=== PATIENT | female | born 1960 | race Caucasian/White ===

== ENCOUNTER 2017-12-18 07:55 | Day surgery (SDC) | payer MEDICAID, SELFPAY ==
[2017-12-18] VITALS (7 sets, daily range): BP systolic 111–123; BP diastolic 58–69; PULSE 68–95; RESP 15–16; TEMP 36.3–36.7; O2SAT 100; BMI 23.5
--- NOTE | 2017-12-18 | COLBX_PTH ---
PATIENT: CASSANDRA CANADA LOC: EN U#:[id number] AGE/SX: 57/F ROOM: RE12/18/[address]: Dr. Noam Goodman MD : 1960 BED: DIS: 12/18/2017 SPEC #: [id number] RECD: 12/18/17 14:31 STATUS: ABHISHEK BECCA #: [id number] MAHESH: 12/18/17 00:[address]: Noam Goodman DEPT: SURGICAL PATHOLOGY RECD BY: Isaías Robins ENTERED: 12/18/17 14:31 SP TYPE: COLON BX ELDA DR: Dr. Noam Flores DO Tissues: A - Transverse colon B - COLON BIOPSY Procedures: Surgery Specimen Level IV HEADER OPERATION: Colonoscopy PRE-OP DIAGNOSIS: Change in bowel habit TISSUE SUBMITTED: A ? Proximal transverse polyp, B ? Random colon biopsies MICROSCOPIC DIAGNOSIS A. Proximal transverse colon polyp, biopsy: Fragments of tubular adenoma. B. Random biopsy: No pathologic diagnosis. AM:sp 12/21/17 MICROSCOPIC DESCRIPTION Slides are reviewed. GROSS DESCRIPTION A - Received is one container labeled with the patient name and designated proximal transverse colon polyp. The specimen consists of multiple irregular fragments of light bui soft tissue that in aggregate measure 1.7 x 0.5 x 0.2 cm. The specimen is totally submitted in one cassette. B - Received is one container labeled with the patient name and designated random colon biopsy. The specimen consists of multiple irregular fragments of light bui soft tissue that in aggregate measure 1 x 0.6 x 0.1 cm. The specimen is totally submitted in one cassette. /AM:rikki 12/18/17 TC: 5 CPT: 88988 x2
--- NOTE | 2017-12-18 10:22 | PCM.OPRPT ---
Problem List (1) Change in bowel habit Status: Acute Report of Operation Date of Procedure: 12/18/17 Pre-Operative Diagnosis: Change of bowel habit, mucus per rectum Post-Operative Diagnosis: Extraordinarily tortuous colon, sessile polyp of the proximal transverse colon, very difficult colonoscopy Surgery/Procedure Performed:: Colonoscopy with hot snare polypectomy. Multiple random colonic biopsies with cold forceps Description of Surgical Findings:: Amount informed consent was obtained. 57-year-old female was taken to the endoscopy suite. She was placed in a left lateral decubitus position. She underwent monitored anesthesia care because a previous colonoscopy done in 2009 included excessive dosing of Versed. Digital rectal exam performed. Normal anal tone. Mild hemorrhoidal changes. Flexible pediatric colonoscope was in the rectum advanced through a very tortuous sigmoid colon. The bowel did not want to easily insufflate. Great tedious time was required to get scope to go through the sigmoid and descending. The patient had a very high hairpin turn to the splenic flexure. This was carefully transgressed patient then had to be placed supine to get the scope to go through the transverse colon then she had a port be placed in the left lateral decubitus position transabdominal pressure was held eventually I was able to get the scope past the hepatic flexure was also made any acute angulation and then there was an elongated ascending colon down to the cecum. The cecum ileocecal valve was achieved. Bowel prep was adequate. There was still some mucousy stool throughout the colon but that could be mostly aspirated. The cecum ileocecal valve area was not remarkable. The scope was carefully withdrawn the ascending colon appeared unremarkable. There was a sessile 12 mm polyp of the proximal transverse colon. Photograph obtained. Hot snare was used to resect. I did use coagulation prior to the coagulation cut setting. The post polypectomy site appeared to be completely hemostatic. It is of additional note that random colonic biopsies were taken throughout the procedure. The scope was then further withdrawn through the transverse colon descending colon and very tortuous sigmoid colon. No additional lesions were identified. Random colonic biopsies with cold forceps were taken along the way. The scope was retroflexed within the rectum mild hemorrhoidal changes noted excess fluid and air was aspirated free the procedure was completed with the patient tolerating it well. Impression Very elongated colon with sharp angled tortuosities Sessile polyp of the proximal transverse colon Random colonic cold forcep biopsies pending The patient will be notified of results as they become available. No gross findings that would correlate with the patient's complaint of mucus per rectum identified. Previous colonoscopy in 2013. Next colonoscopy recommended in 5 years pending pathology. Scope was inserted 0943. The cecum was reached at 1006. The procedure was completed at 1018. CC: Dr. Noam Goodman M.D., F.A.C.S. Type of Anesthesia:: MAC Anesthesiologist: Mallika Nassar
== END 2017-12-18 11:53 | disposition home or self-care (01) ==
LOC: EN 07:56 → AC 07:57
PROVIDERS: Family Provider Preventive Medicine Occupational Medicine; PCP Preventive Medicine Occupational Medicine; Visit Provider Surgery
PROC: 0DJD8ZZ Inspection of Lower Intestinal Tract, Via Natural or Artificial Opening Endoscopic (ICD-10-PCS; CPT 45378; principal; 2017-12-18 08:55)
DX: D12.3 Benign neoplasm of transverse colon (principal); D68.59 Other primary thrombophilia; F32.9 Major depressive disorder, single episode, unspecified; F41.9 Anxiety disorder, unspecified; M54.9 Dorsalgia, unspecified; G89.29 Other chronic pain; Z86.718 Personal history of other venous thrombosis and embolism; Z86.73 Personal history of transient ischemic attack (TIA), and cerebral infarction without residual deficits; Z87.891 Personal history of nicotine dependence; Z86.2 Personal history of diseases of the blood and blood-forming organs and certain disorders involving the immune mechanism; Z79.82 Long term (current) use of aspirin; Z79.01 Long term (current) use of anticoagulants; Z79.891 Long term (current) use of opiate analgesic; Z79.899 Other long term (current) drug therapy
CPT/HCPCS: 45384; 88305; J7120; J2405

== ENCOUNTER 2022-11-04 09:05 | Day surgery (SDC) | payer MEDICAID, SELFPAY ==
[2022-11-04] VITALS (7 sets, daily range): BP systolic 122–158; BP diastolic 64–99; PULSE 90–103; RESP 16–18; TEMP 36.2–36.6; O2SAT 99–100; BMI 24.5
[2022-11-04] MEDS: Lactated Ringers 1,000 ML 15 ML IV (09:42)
--- NOTE | 2022-11-04 09:49 | PCM.HP.BLA ---
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 Is patient in pain?: Yes Allergies propofol Allergy (Verified 10/14/22 15:21) Hivesacetaminophen [From Darvocet-N] Adverse Reaction (Verified 10/14/22 15:21) PT UNSURE OF REACTIONalprazolam [From Xanax] Adverse Reaction (Verified 10/14/22 15:21) Otherdiazepam [From Valium] Adverse Reaction (Verified 10/14/22 15:21) hyperactivelorazepam [From Ativan] Adverse Reaction (Verified 10/14/22 15:21) Otherpropoxyphene [From Darvocet-N] Adverse Reaction (Verified 10/14/22 15:21) PT UNSURE OF REACTIONpropoxyphene HCl [From Darvon] Adverse Reaction (Verified 10/14/22 15:21) Other Medications Loeofq-Yuwyydyg-Nbpz 50-325-40 1 tab PO PRN PRN Headache 11/07/13 [History Confirmed 12/18/17] aspirin 81 mg chewable tablet 81 mg PO DAILY@0800 11/07/13 [History Confirmed 10/14/22] clonazepam 1 mg tablet 1 mg PO TID 11/07/13 [History Confirmed 10/14/22] jftyhfflb-fjyqtxzwp-uqyqjhxz-scop 16.2 mg-0.1037 mg/5 mL (5 mL) elixir 16.2 mg PO X1 11/07/13 [History Confirmed 12/18/17] tramadol 50 mg tablet 50 mg PO BID PRN PRN Pain 11/07/13 [History Confirmed 10/14/22] chlorzoxazone 500 mg tablet 500 mg PO TID muscle relaxant 11/24/17 [History Confirmed 10/14/22] Coral Calcium 1 cap PO TID 12/10/17 [History Confirmed 12/18/17] calcium carbonate 200 mg calcium (500 mg) chewable tablet 500 mg PO DAILY@0800 12/10/17 [History Confirmed 12/18/17] melatonin-pyridoxine HCl (vitamin B6) 3 mg-10 mg tablet 3 ea PO QHS 12/10/17 [History Confirmed 12/18/17] sucralfate 1 gram tablet 1 g PO PRN PRN stomach pain 12/10/17 [History Confirmed 10/14/22] trazodone 100 mg tablet 100 mg PO QHS PRN PRN Sleep 12/10/17 [History Confirmed 10/14/22] warfarin 7.5 mg tablet 7.5 mg PO DAILY 12/10/17 [History Confirmed 10/14/22] pravastatin 40 mg tablet tablet PO 10/14/22 [History Confirmed 10/14/22] PFSH Medical History (Updated 10/14/22 @ 15:[address] Noam Goodman MD) Cardiac murmur Change in bowel habit Chronic back pain Constipation CVA (cerebral vascular accident) Depression DVT (deep venous thrombosis) Protein C deficiency Surgical History (Updated 12/18/17 @ 10:[address] Noam Goodman MD) History of cone biopsy of uterine cervix S/P cholecystectomy S/P colonoscopy S/P parathyroidectomy Family History (Updated 11/24/17 @ 15:17 by Mary Mondragon) Sister Heart disease CAD (coronary artery disease) HypertensionMother DiabetesBrother Hypertension Social History (Updated 11/24/17 @ 19:[address] Noam Goodman MD) Smoking Status: Former smoker alcohol intake: current substance use type: does not use HPI HPI HPI: 62-year-old female is being referred by Dr. Noam Flores for surgical consultation back pain and change of bowel habits. Written compromise surgical consult and recommendations will return to him. It is of note that December 18, 2017 I performed a colonoscopy with hot snare polypectomy and multiple colonic biopsies. Postoperative note was commented upon about an extraordinarily tortuous colon and an extraordinarily difficult colonoscopy. Pathology of the polyp showed fragments of tubular adenoma. The random colonic biopsies were normal. Today's evaluation the patient states that she has been having severe problems with right lower quadrant pain. She thinks is gas. She states when she had a previous cholecystectomy that she is almost assuredly took her appendix out. She reminds me that 5 years ago I did a CT scan because of abdominal pain and saw nothing only copious amounts of colon filled stool. She has been on warfarin for at least 25 years. She states that she has had a stroke while on warfarin because her levels vary dramatically. She states that 5 years ago we only held her warfarin 1 day because of her increased risk. She denies bright red blood per rectum or melena. She states she moves her bowels sometimes as infrequently as once per week. No family history of colon cancer. She has had no unexpected weight loss She states that during her procedure 5 years ago she was given lidocaine to help with discomfort then propofol and Zofran she stated that she developed severe hives and had to additionally be treated with Benadryl. Since that time the patient has had Zofran for other reasons. She states that she has had lidocaine for dental work. Therefore she assumes that the propofol was the etiologic agent to her hives and is requesting a different type of medication. ROS General General: Yes fatigue; No weight change, appetite, colon cancer, breast cancer or weakness HEENT HEENT: No difficulty swallowing, eye injury, eye surgery, swollen glands or hoarseness Endo Endocrine: No thyroid disease, diabetes mellitus, thyroid cancer, Hair loss, heat intolerance or cold intolerance Skin Skin: Yes rash; No changing moles Breast Breast: No left breast lump, right breast lump, nipple discharge, breast pain, abnormal mammogram, abnormal US or breast enlargement Musc Musculoskeletal: Yes back problems and arthritis; No rheumatoid arthritis, gout or joint pain Cardio Cardiovascular: Yes murmur; No pacemaker, heart disease, atrial fibrillation, high blood pressure, heart attack, heart stent, palpitations, shortness of breat with exertion or chest pain Psych Psychiatric: Yes anxiety; No depression or hearing voices Resp Respiratory: No shortness of breath, No sleep apnea, No cough, No COPD, No asthma, No emphysema and No wheezing Gastro Gastrointestinal: Yes abdominal pain, Yes nausea or vomiting, No diarrhea, Yes constipation, No blood in stool, Yes acid reflux, No hemorrhoids, No ulcers, No gallbladder problem and No black,tarry stools Neo Hematologic: Yes blood thinners, Yes blood disorders, No bleeding, No anemia and Yes blood clots Neuro Neurologic: No system reviewed and no additional complaints, except as documented, No as per HPI, No abnormal gait, No abnormal hearing, No abnormal movements, No abnormal speech, No behavioral changes, No burning sensations, No confusion, No convulsions, No disequilibrium, No dizziness, No localized weakness, No frequent falls, No headache(s), No lack of coordination, No loss of vision, No memory loss, Yes numbness, No other visual disturbances, No radicular pain, No restless legs, No sensory deficit, No syncope, Yes tingling, No tremor(s), No weakness and No other Exam Const General: cooperative and comfortable HENDE Head: normal to inspection Eyes General: appearance normal, both eyes and all related structures Neck Neck: normal visual inspection Resp Effort & Inspection: normal respiratory effort Auscultation: clear to auscultation bilaterally Cardio Rate: regular rate Rhythm: regular rhythm GI Other: Soft, bloated, no focal tenderness, no mass Musc Cervical Spine: normal cervical lordosis Skin General: no rashes or lesions noted Neuro General: patient alert, patient awake and patient oriented x3 Extrem General: no calf tenderness Psych Appearance: grossly normal Assessment and Plan Assessment and Plan (1) Change in bowel habit: Status: Acute (2) Constipation: Status: Acute (3) Personal history of colonic polyps: Status: Acute (4) Protein C deficiency: Status: Acute Plan: Complicated high risk patient. I have already made comment that her previous colonoscopy was technically very challenging. She has severe constipation and right lower quadrant pain. She states that she is not moving her bowels but once every week and that routine MiraLAX treatment was complete and effective and so she has abandoned it. I had initially proposed for her 2 days of clear liquids and 2 days of bowel prep. She felt that this would be excessive and so we decided on 2 days of clear liquids have to have bowel prep on day 1 and a full day of bowel prep on day 2. She is concerned about the hives that she incurred last time. We will notify anesthesia that the patient may be intolerant to propofol. Protein C deficiency placing her at higher risk for thrombosis and/or bleeding because of the Coumadin. She states that she cannot be off the Coumadin longer than 1 day because of the variability of her anticoagulation. She states that we held it 1 day prior to her procedure 5 years ago. I anticipate monitored anesthesia care. Anticipate utilizing an adult scope. The patient is very much aware of the technique, benefit, risk, alternatives. She is aware that I consider her to be an increased procedural risk candidate. We will allow extra time. She has had an opportunity to ask and have questions answered. We will schedule procedure at her discretion. I did briefly discuss benefit risk from CT imaging of the abdomen pelvis because of the right lower quadrant pain. She states that her previous CAT scan was not usable due to the amount of stool. Depending on the findings at the time of colonoscopy might consider a postprocedural CT scan if it seems clinically indicated at that time. I appreciate the opportunity of assisting with her surgical care Plan Copy: Dr. Noam Goodman M.D., F.A.C.S. I have examined the patient and the H&P has been reviewed. There are no clinical changes since date of exam. Noam Goodman M.D., F.A.C.S.
[2022-11-04 10:00] LABS: INR Fingerstick 2.8; Prothrombin Time Fingerstick 30.3 SEC (11.7-14.9)
--- NOTE | 2022-11-04 11:36 | OP.COLON_ITS ---
Patient Name: Kailyn Rajput Procedure Date: 11/04/2022 10:59 AM Date of : 1960 Age: 62 Procedure: Colonoscopy Indications: Constipation Providers: Noam Goodman MD Referring MD: Noam Flores Medicines: See the Anesthesia note for documentation of the administered medications Patient Profile: Last Colonoscopy: date unknown. Complications: No immediate complications. Procedure: Pre-Anesthesia Assessment: - Prior to the procedure, a History and Physical was performed, and patient medications and allergies were reviewed. The patient's tolerance of previous anesthesia was also reviewed. The risks and benefits of the procedure and the sedation options and risks were discussed with the patient. All questions were answered, and informed consent was obtained. Prior Anticoagulants: The patient has taken no previous anticoagulant or antiplatelet agents. ASA Grade Assessment: II - A patient with mild systemic disease. After reviewing the risks and benefits, the patient was deemed in satisfactory condition to undergo the procedure. After I obtained informed consent, the scope was passed under direct vision. Throughout the procedure, the patient's blood pressure, pulse, and oxygen saturations were monitored continuously. The adult colonoscope was introduced through the anus and advanced to the cecum, identified by appendiceal orifice and ileocecal valve. The colonoscopy was somewhat difficult due to significant looping. Successful completion of the procedure was aided by using manual pressure. Scope In: 11:13:32 AM Scope Withdrawal Time 0 hours 5 minutes 57 seconds Scope Out: 11:30:19 AM Total Procedure Duration Time 0 hours 16 minutes 47 seconds Findings: Hemorrhoids were found on perianal exam. The colon (entire examined portion) was significantly tortuous. Advancing the scope required using manual pressure. Multiple diverticula were found in the sigmoid colon and descending colon. The lumen of the transverse colon and ascending colon was moderately dilated. Impression: - Hemorrhoids found on perianal exam. - Tortuous colon. - Diverticulosis in the sigmoid colon and in the descending colon. - Dilated in the transverse colon and in the ascending colon. - No specimens collected. Recommendation: - Discharge patient to home. - Resume previous diet. - Continue present medications. - Use fiber, for example Citrucel, Fibercon, Konsyl or Metamucil. May add MiraLAX 1 capful orally daily or even twice daily as needed for constipation - Repeat colonoscopy in 10 years for screening purposes. Procedure Code(s): --- Professional --- 17103, Colonoscopy, flexible; diagnostic, including collection of specimen(s) by brushing or washing, when performed (separate procedure) Diagnosis Code(s): --- Professional --- K64.9, Unspecified hemorrhoids K59.39, Other megacolon K59.00, Constipation, unspecified K57.30, Diverticulosis of large intestine without perforation or abscess without bleeding Q43.8, Other specified congenital malformations of intestine CPT copyright 2017 [employer]. All rights reserved. The codes documented in this report are preliminary and upon community marketing coordinator review may be revised to meet current compliance requirements. Noam Goodman MD 11/04/2022 11:36:47 AM This report has been signed electronically. Number of Addenda: 0 Note Initiated On: 11/04/2022 10:59 AM
--- NOTE | 2022-11-04 11:37 | OP.CCLET_ITS ---
11/04/2022 Noam Flores [address] [place] [address] Re : Colonoscopy procedure for Kailyn Rajput Dear Dr. Flores This procedure was performed on Friday, November 04, 2022. My impressions and recommendations are as follows: Impressions : - Hemorrhoids found on perianal exam. - Tortuous colon. - Diverticulosis in the sigmoid colon and in the descending colon. - Dilated in the transverse colon and in the ascending colon. - No specimens collected. Recommendations : - Discharge patient to home. - Resume previous diet. - Continue present medications. - Use fiber, for example Citrucel, Fibercon, Konsyl or Metamucil. May add MiraLAX 1 capful orally daily or even twice daily as needed for constipation - Repeat colonoscopy in 10 years for screening purposes. My findings are described in the full procedure note, which is enclosed. If I can be of further assistance, please feel free to contact me at Doctor phone number(s): Work: . Sincerely, Noam Goodman MD 11/04/2022 11:36:47 AM This report has been signed electronically.
--- NOTE | 2022-11-04 11:49 | SUR.PHASEI ---
per dr schwartz pt obstructed during procedure. health professional atempted to insert nasal airway . pt noted to have small amt red drainage from right nare. pt awake and c/o sore throat. voice is hoarse. ice chips given.
--- NOTE | 2022-11-04 12:39 | SUR.PHASEII ---
dr schwartz at bedside to look at pts thorat. some erythema noted. encouraged pt to use throat soothing drops, warm or cold, and that pain should go away within a day or two. pt with understanding, pt ready for d/c.
== END 2022-11-04 13:43 | disposition home or self-care (01) ==
LOC: EN 09:07 → AC 09:08
PROVIDERS: PCP Preventive Medicine Occupational Medicine; Referring Provider Preventive Medicine Occupational Medicine; Visit Provider Surgery
PROC: 0DJD8ZZ Inspection of Lower Intestinal Tract, Via Natural or Artificial Opening Endoscopic (ICD-10-PCS; CPT 45378; principal; 2022-11-04 10:10)
DX: K57.30 Diverticulosis of large intestine without perforation or abscess without bleeding (principal); D68.59 Other primary thrombophilia; Z87.891 Personal history of nicotine dependence; K64.9 Unspecified hemorrhoids; Z86.010 Personal history of colon polyps; Z90.49 Acquired absence of other specified parts of digestive tract; Z79.01 Long term (current) use of anticoagulants; Z79.899 Other long term (current) drug therapy
CPT/HCPCS: 45378; 36416; 85610; J7120

== ENCOUNTER 2024-12-02 12:06 | Day surgery (SDC) | payer MEDICAID, SELFPAY ==
--- NOTE | 2024-11-29 11:58 | PAT.ANESEVAL ---
Pre-Assessment Diagnosis/Proposed Procedure Planned Operative Procedure(s): EGD Anesthesia History Anesthesia History - forensic social worker: Anesthesia History - forensic social worker Hx Hospitalization Yes: 09/2024 [facility] 11/29/24 10:46 Any Problems With Anesthesia Yes: PROPOFOL CAUSED RASH 11/29/24 10:46 2018 ALSO BREATHING ISSUES Cholinesterase deficiency No 11/29/24 10:46 You/Your Family Experience No 11/29/24 10:46 fever (hyperthermia) with Relationship Recent Exposure to Contagious No 10/27/24 12:26 Disease Does patient have nerve No 11/29/24 10:46 stimulator Patient instructed to have device shut off --Does patient have Pacemaker or ICD? When Was Last Pacemaker Check QUESTION #4 FULL TEXT: You/Your Family Experience fever (hyperthermia) with Anesthesia Last Oral Intake Last Oral intake: Last Oral Intake NPO since Meds taken in AM with sips of water? Meds patient instructed to take am of surgery PONV PONV - forensic social worker: PONV - forensic social worker Female Yes 11/29/24 10:46 HX of Motion Sickness No 11/29/24 10:46 HX of N/V After Surgery No 11/29/24 10:46 Non-Smoker Yes 11/29/24 10:46 Duration of Surgery greater No 11/29/24 10:46 than 60 minutes Number of Risk Factors 2 11/29/24 10:46 PONV Score Moderate Risk 11/29/24 10:46 Height & Weight Height & Weight: Anesthesia: Height & Weight Height 5 ft 8 in 10/27/24 12:26 Respiratory Assessment Respiratory Assessment - forensic social worker: Respiratory Tract Infection Hx - forensic social worker Hx Respiratory Tract Infection No 11/29/24 10:46 STOP Sleep Apnea STOP Sleep Apnea - forensic social worker: STOP Sleep Apnea - forensic social worker Hx Hypertension Yes: NO MEDS PRIOR TO 2018 11/29/24 10:46 Hx Sleep Apnea No 11/29/24 10:46 CPAP BIPAP Do you snore loudly (louder No 11/29/24 10:46 than talking or can be heard Do you often feel tired/ No 11/29/24 10:46 fatigued/ sleepy during daytime? Has anyone observed you stop No 11/29/24 10:46 breathing during sleep? STOP Results Negative 11/29/24 10:46 QUESTION #5 FULL TEXT : Do you snore loudly (louder than talking or can be heard through closed doors)? Tobacco Use History Tobacco Use History - forensic social worker: Tobacco Use History - forensic social worker Tobacco Use Smoking Status Former smoker 11/29/24 10:46 Hx Tobacco Use No 11/29/24 10:46 Years Smoking Packs Smoked per Day Smoking Cessation Date was No - quit smoking greater 11/29/24 10:46 within the last 15 years than 15 years ago Hx Smoking Cessation Date Hx Smoking Cessation No 11/29/24 10:46 Counseling Hematologic Medial History Hematologic Hx - forensic social worker: Hematologic Medical Hx - geography instructor Hx of Blood Transfusion No 11/29/24 10:46 Hx of Transfusion in last 3 No 11/29/24 10:46 Months Date of Last Transfusion (if within last 3 months) Ever experience any problems No 11/29/24 10:46 with transfusion(s)? Specify any problems Hx of Preganancy in last 3 No 11/29/24 10:46 Months Nurse Filling Out Transfusion VCHRISTIN 11/29/24 10:46 & Questions: Date: 11/29/24 11/29/24 10:46 Time: 10:48 11/29/24 10:46 Patient unable to answer at this time (ie. confused, unrespo /Reproduction History /Reproductive History - forensic social worker: /Reproductive Hx- forensic social worker Hx Now No 11/29/24 10:46 Gestational Age (in weeks): EDC: Hx Hx Para Hx Section SAB No 11/29/24 10:46 PFSH Medical History (Updated 11/29/24 @ 10:46 by Joyce Crabtree) Blood disorder Back pain Gastric reflux History of echocardiogram Cardiology follow-up encounter Wears glasses Post-menopausal Anxiety Alcohol use Rash Arthritis Blood disorder Migraine headache Stroke/cerebrovascular accident TIA (transient ischemic attack) Difficulty swallowing History of IBS Former smoker Shortness of breath on exertion Leg cramps History of edema MVP (mitral valve prolapse) History of stress test Change in bowel habit Depression Constipation DVT (deep venous thrombosis) Protein C deficiency Home Medications ?Medication ?Instructions ?Recorded ?Last Taken ?Type Prfxzh-Qcocxswh-Uwqg 50-325-40 1 tab PO PRN PRN Headache 11/07/13 Unknown History clonazepam 1 mg tablet 1 mg PO TID 11/07/13 12/18/17 02:00 History tramadol 50 mg tablet 100 mg PO Q8H PRN Pain 11/07/13 Unknown History chlorzoxazone 500 mg tablet 500 mg PO 4X/DAY muscle relaxant 11/24/17 Unknown History calcium carbonate 500 mg PO DAILY@0800 12/10/17 Unknown History sucralfate 1 gram tablet 1 g PO PRN PRN stomach pain 12/10/17 Unknown History warfarin 7.5 mg tablet 7.5 mg PO SUTUTHSA 12/10/17 11/02/22 History pravastatin 40 mg tablet 40 mg PO DAILY 10/14/22 Unknown History warfarin 7.5 mg tablet 3.75 mg PO QMWF 10/31/22 11/02/22 History dicyclomine 20 mg tablet 20 mg PO 4X/DAY PRN abdominal pain 11/03/24 Unknown History pantoprazole 40 mg tablet,delayed 40 mg PO QDAY 11/03/24 Unknown History release ondansetron 4 mg disintegrating 4 mg PO Q8H #20 tabs 11/09/24 Unknown Rx tablet famotidine 20 mg tablet 20 mg PO DAILY 11/29/24 Unknown History melatonin 5 mg capsule 5 mg PO QHS 11/29/24 Unknown History Allergy/AdvReac Type Severity Reaction Status Date / Time diphenhydramine (From Allergy Severe Other Verified 11/29/24 10:26 Benadryl) propofol Allergy Anaphylaxis Verified 11/29/24 10:25 acetaminophen (From AdvReac PT UNSURE Verified 11/29/24 10:25 Darvocet-N) OF REACTION alprazolam (From Xanax) AdvReac Other Verified 11/29/24 10:25 diazepam (From Valium) AdvReac hyperactive Verified 11/29/24 10:25 lorazepam (From Ativan) AdvReac Other Verified 11/29/24 10:25 propoxyphene (From AdvReac PT UNSURE Verified 11/29/24 10:25 Darvocet-N) OF REACTION propoxyphene HCl (From AdvReac Other Verified 11/29/24 10:25 Darvon) Family History Sister Heart disease CAD (coronary artery disease) Hypertension Mother Diabetes Brother Hypertension Surgical History (Updated 11/29/24 @ 10:46 by Joyce Crabtree) History of cardiac catheterization Hx of colonoscopy History of cone biopsy of uterine cervix S/P cholecystectomy S/P parathyroidectomy S/P colonoscopy Social History Smoking Status: Former smoker alcohol intake: current substance use type: does not use Audit: Pertinent Findings Pertinent Findings EKG Perinent findings: 10/10/2024. Sinus rhythm. Multiple premature complexes, ventricular and supraventricular Stress test pertinent findings: Per cardiology note. Stress test 06/20/2019 stress test is negative for ischemia or infarct LVEF 58% Heart catheterization pertinent findings: 10/12/2024. Systolic function is normal. Hypokinesis of the basal inferior myocardium. No significant disease is identified. Continue medical management Recommendation Anesthesia Recommendation Anesthesia recommendation: OPTIMIZED for anesthesia
[2024-12-02] VITALS (8 sets, daily range): BP systolic 130–156; BP diastolic 72–88; PULSE 85–122; RESP 16–22; TEMP 36.6–37.2; O2SAT 96–100; BMI 23.1
[2024-12-02 12:16] LABS: INR Fingerstick 1.3
--- NOTE | 2024-12-02 12:26 | PCM.HP.STD ---
HPI - General General Date of Admission: 12/02/24 Date of Service: 12/28/24 Chief Complaint: GERD HPI Narrative CASSANDRA CANADA, is a 64 F who presentsChief Complaint: GERD WSA 10.14.22 for severe rlq pain. Colonoscopy 11.04.22; - Hemorrhoids found on perianal exam. - Tortuous colon. - Diverticulosis in the sigmoid colon and in the descending colon. - Dilated in the transverse colon and in the ascending colon. - No specimens collected. OV 11.03.24 Pt here today for epigastric pain, n/v, constipation and occasional diarrhea. In Apr 2024 pt noticed she had some increase in GERD symptoms. She was started on Pantoprazole 40 mg daily from her PCP. This resolved her symptoms so she discontinued. In July, her symptoms came back with a vengeance. She has constant burning pain in her chest. She is vomiting almost daily. Her symptoms are typically worse in the morning on an empty stomach. She endorses vomiting bile. She is s/p cholecystectomy. Last EGD was around 20 years ago. [facility], [facility] Medical History Blood disorder Back pain Gastric reflux History of echocardiogram Cardiology follow-up encounter Wears glasses Post-menopausal Anxiety Alcohol use Rash Arthritis Blood disorder Migraine headache Stroke/cerebrovascular accident TIA (transient ischemic attack) Difficulty swallowing History of IBS Former smoker Shortness of breath on exertion Leg cramps History of edema MVP (mitral valve prolapse) History of stress test Change in bowel habit Depression Constipation DVT (deep venous thrombosis) Protein C deficiency Home Medications ?Medication ?Instructions ?Recorded ?Last Taken ?Type Potslx-Lvwplgse-Qkak 50-325-40 1 tab PO PRN PRN Headache 11/07/13 Unknown History clonazepam 1 mg tablet 1 mg PO TID 11/07/13 12/18/17 02:00 History tramadol 50 mg tablet 100 mg PO Q8H PRN Pain 11/07/13 Unknown History chlorzoxazone 500 mg tablet 500 mg PO 4X/DAY muscle relaxant 11/24/17 Unknown History calcium carbonate 500 mg PO DAILY@0800 12/10/17 Unknown History sucralfate 1 gram tablet 1 g PO PRN PRN stomach pain 12/10/17 Unknown History warfarin 7.5 mg tablet 7.5 mg PO SUTUTHSA 12/10/17 11/02/22 History pravastatin 40 mg tablet 40 mg PO DAILY 10/14/22 Unknown History warfarin 7.5 mg tablet 3.75 mg PO QMWF 10/31/22 11/02/22 History dicyclomine 20 mg tablet 20 mg PO 4X/DAY PRN abdominal pain 11/03/24 Unknown History pantoprazole 40 mg tablet,delayed 40 mg PO QDAY 11/03/24 Unknown History release ondansetron 4 mg disintegrating 4 mg PO Q8H #20 tabs 11/09/24 Unknown Rx tablet famotidine 20 mg tablet 20 mg PO DAILY 11/29/24 Unknown History melatonin 5 mg capsule 5 mg PO QHS 11/29/24 Unknown History Allergy/AdvReac Type Severity Reaction Status Date / Time diphenhydramine (From Allergy Severe Other Verified 11/29/24 10:26 Benadryl) propofol Allergy Anaphylaxis Verified 11/29/24 10:25 acetaminophen (From AdvReac PT UNSURE Verified 11/29/24 10:25 Darvocet-N) OF REACTION alprazolam (From Xanax) AdvReac Other Verified 11/29/24 10:25 diazepam (From Valium) AdvReac hyperactive Verified 11/29/24 10:25 lorazepam (From Ativan) AdvReac Other Verified 11/29/24 10:25 propoxyphene (From AdvReac PT UNSURE Verified 11/29/24 10:25 Darvocet-N) OF REACTION propoxyphene HCl (From AdvReac Other Verified 11/29/24 10:25 Darvon) Family History Sister Heart disease CAD (coronary artery disease) Hypertension Mother Diabetes Brother Hypertension Surgical History History of cardiac catheterization Hx of colonoscopy History of cone biopsy of uterine cervix S/P cholecystectomy S/P parathyroidectomy S/P colonoscopy Social History Smoking Status: Former smoker alcohol intake: current substance use type: does not use ROS Constitutional Constitutional: Denies fatigue, fever(s), poor appetite, weight gain or weight loss Gastrointestinal Gastrointestinal: Denies belching, bloating, change in bowel habits, change in stool character, chewing difficulty, coffee ground emesis, constipation, cramping, diarrhea, dyspepsia, dysphagia, early satiety, excessive flatus, fecal incontinence, heartburn, hematemesis, hematochezia, hemorrhoids, loose stools, melena, nausea, odynophagia, rectal bleeding, tenesmus, vomiting or weight changes Physical Exam Const alert, oriented x3, no apparent distress and healthy appearing General Appearance: cooperative GI normal to inspection, nondistended, normoactive bowel sounds, soft to palpation, non-tender and non-distended Percussion: normal to percussion Rectal Exam: deferred Results Lab / Micro Data Labs: Laboratory Results - last 24 hr 12/02/24 12:14: POC PT 15.5 H, INR 1.3 Assessment & Plan Assessment/Plan (1) Nausea & vomiting: (2) Epigastric pain: PLAN: Assessment and Plan Assessment and Plan (1) Constipation: Status: Acute Plan: Cassandra is a 64 yo female pt here today for evaluation of epigastric pain, n/v, and constipation since Apr 2024. Pt was started on Pantoprazole 40 mg daily which alleviated her symptoms however she discontinued it and symptoms resumed. She will undergo EGD to asses her upper GI tract for inflammation. She will continue Pantoprazole 40 mg BID. Will consider tapering down in the future once symptoms are under control. She will continue reglan which was prescribed from [facility]. Last colonoscopy was in 2022 with recommendation for repeat in 10 years. She has always had constipation therefore not concerned for pathologic process of the colon. Will consider colonoscopy in the future indicated. -EGD -Continue Pantoprazole 40 mg BID -Continue Reglan -f/u after procedure (2) Epigastric pain: Status: Acute (3) Nausea & vomiting: Status: Acute
[2024-12-02] MEDS: Lactated Ringers 1,000 ML 15 ML IV (12:30)
--- NOTE | 2024-12-02 13:22 | PRE.ANES_ITS ---
ASA Classification* ASA Classification ASA Classification: 3 Assessment & Plan Anesthesia* Anesthesia Assessment Anesthesia Assessment: Discussed sedation and/or anesthesia options, risks, benefits, and alternatives with patient/parents/legal guardian/POA. Questions invited. The patient/parents/legal guardian/POA seems to understand and agrees to proceed with anesthesia plan. Reviewed the physical assessment, medical history, allergy history and patient home medications list prior to surgery/procedure/anesthetic and documented any changes. Performed airway and anesthesia risk assessments. Anesthesia Type Anesthesia Type: MAC History Source History Obtained from:: Patient and Chart Anesthesia Focused Assessment* Temperature: 98 F Pulse Rate: 96 Blood Pressure: 130/82 Respiratory Rate: 16 Pulse Ox: 97 Oxygen Delivery Method: Room Air Airway Assessment Mouth opens: >3 cm Mallampati Score: IV Teeth Condition: Caps/Crowns (Patient has several capped teeth. They are all tight.) Neck Range of motion (ROM): Full ROM Labs Anesthesia Preop lab: CBC CHEMISTRY COAG Pre-Assessment Diagnosis/Proposed Procedure Planned Operative Procedure(s): EGD Anesthesia History Anesthesia History - patient insurance clerk: Anesthesia History - patient insurance clerk Hx Hospitalization Yes: 09/2024 [facility] 11/29/24 10:46 Any Problems With Anesthesia Yes: PROPOFOL CAUSED RASH 11/29/24 10:46 2018 ALSO BREATHING ISSUES Cholinesterase deficiency No 11/29/24 10:46 You/Your Family Experience No 11/29/24 10:46 fever (hyperthermia) with Relationship Recent Exposure to Contagious No 12/02/24 12:44 Disease Does patient have nerve No 11/29/24 10:46 stimulator Patient instructed to have device shut off --Does patient have Pacemaker No 12/02/24 12:44 or ICD? When Was Last Pacemaker Check QUESTION #4 FULL TEXT: You/Your Family Experience fever (hyperthermia) with Anesthesia Last Oral Intake Last Oral intake: Last Oral Intake NPO since 01:00 12/02/24 12:44 Meds taken in AM with sips of No 12/02/24 12:44 water? Meds patient instructed to take am of surgery PONV PONV - patient insurance clerk: PONV - patient insurance clerk Female Yes 11/29/24 10:46 HX of Motion Sickness No 11/29/24 10:46 HX of N/V After Surgery No 11/29/24 10:46 Non-Smoker Yes 11/29/24 10:46 Duration of Surgery greater No 11/29/24 10:46 than 60 minutes Number of Risk Factors 2 11/29/24 10:46 PONV Score Moderate Risk 11/29/24 10:46 Height & Weight Height & Weight: Anesthesia: Height & Weight Height 5 ft 7 in 12/02/24 12:44 Weight: 67 kg 12/02/24 12:44 Body Mass Index (BMI) 23.1 12/02/24 12:44 Respiratory Assessment Respiratory Assessment - patient insurance clerk: Respiratory Tract Infection Hx - patient insurance clerk Hx Respiratory Tract Infection No 11/29/24 10:46 STOP Sleep Apnea STOP Sleep Apnea - patient insurance clerk: STOP Sleep Apnea - patient insurance clerk Hx Hypertension Yes: NO MEDS PRIOR TO 201711/29/24 10:46 Hx Sleep Apnea No 11/29/24 10:46 CPAP BIPAP Do you snore loudly (louder No 11/29/24 10:46 than talking or can be heard Do you often feel tired/ No 11/29/24 10:46 fatigued/ sleepy during daytime? Has anyone observed you stop No 11/29/24 10:46 breathing during sleep? STOP Results Negative 11/29/24 10:46 QUESTION #5 FULL TEXT : Do you snore loudly (louder than talking or can be heard through closed doors)? Tobacco Use History Tobacco Use History - patient insurance clerk: Tobacco Use History - patient insurance clerk Tobacco Use Smoking Status Former smoker 11/29/24 10:46 Hx Tobacco Use No 11/29/24 10:46 Years Smoking Packs Smoked per Day Smoking Cessation Date was No - quit smoking greater 11/29/24 10:46 within the last 15 years than 15 years ago Hx Smoking Cessation Date Hx Smoking Cessation No 11/29/24 10:46 Counseling Hematologic Medial History Hematologic Hx - patient insurance clerk: Hematologic Medical Hx - dietitian Hx of Blood Transfusion No 11/29/24 10:46 Hx of Transfusion in last 3 No 11/29/24 10:46 Months Date of Last Transfusion (if within last 3 months) Ever experience any problems No 11/29/24 10:46 with transfusion(s)? Specify any problems Hx of Preganancy in last 3 No 11/29/24 10:46 Months Nurse Filling Out Transfusion VCHRISTIN 11/29/24 10:46 & Questions: Date: 11/29/24 11/29/24 10:46 Time: 10:48 11/29/24 10:46 Patient unable to answer at this time (ie. confused, unrespo /Reproduction History /Reproductive History - patient insurance clerk: /Reproductive Hx- patient insurance clerk Hx Now No 11/29/24 10:46 Gestational Age (in weeks): EDC: Hx Hx Para Hx Section SAB No 11/29/24 10:46 Active Medications Active Medications: Current Medications Generic Name Dose Route Start Last Admin Trade Name Freq PRN Reason Stop Dose Admin Lactated Ringer's 1,000 mls @ 15 mls/hr 12/02/24 12:30 12/02/24 12:30 IV 15 mls/hr .Q48H CELSO Administration PFSH Medical History Blood disorder Back pain Gastric reflux History of echocardiogram Cardiology follow-up encounter Wears glasses Post-menopausal Anxiety Alcohol use Rash Arthritis Blood disorder Migraine headache Stroke/cerebrovascular accident TIA (transient ischemic attack) Difficulty swallowing History of IBS Former smoker Shortness of breath on exertion Leg cramps History of edema MVP (mitral valve prolapse) History of stress test Change in bowel habit Depression Constipation DVT (deep venous thrombosis) Protein C deficiency Home Medications ?Medication ?Instructions ?Recorded ?Last Taken ?Type Gbgzyz-Yixuqgjz-Nerr 50-325-40 1 tab PO PRN PRN Headac he 11/07/13 Unknown History clonazepam 1 mg tablet 1 mg PO TID 11/07/13 8 02:00 History tramadol 50 mg tablet 100 mg PO Q8H PRN Pain 11/07 Unknown History chlorzoxazone 500 mg tablet 500 mg PO 4X/DAY muscle re laxant 11/24/17 Unknown History calcium carbonate 500 mg PO DAILY@0800 8 Unknown History sucralfate 1 gram tablet 1 g PO PRN PRN stomach pain 12/10/17 Unknown History warfarin 7.5 mg tablet 7.5 mg PO SUTUTHSA 12/10/17 11/02/22 History pravastatin 40 mg tablet 40 mg PO DAILY 10/14/22 Unkn own History warfarin 7.5 mg tablet 3.75 mg PO QMWF 10/31/2211/18 History dicyclomine 20 mg tablet 20 mg PO 4X/DAY PRN abdomina l pain 11/03/24 Unknown History pantoprazole 40 mg tablet,delayed 40 mg PO QDAY Unknown History release ondansetron 4 mg disintegrating 4 mg PO Q8H #20 tabs 0 11/09/24 Unknown Rx tablet famotidine 20 mg tablet 20 mg PO DAILY 11/29/24 Unkn own History melatonin 5 mg capsule 5 mg PO QHS 11/29/24 Unknown History enoxaparin 80 mg/0.8 mL mg 12/02/24 12/02/24 History subcutaneous syringe Allergy/AdvReac Type Severity Reaction Status Date / Time diphenhydramine (From Allergy Severe Other Verified 11/29/24 10:26 Benadryl) propofol Allergy Anaphylaxis Verified 11/29/24 10:25 alprazolam (From Xanax) AdvReac Other Verified 11/29/24 10:25 diazepam (From Valium) AdvReac hyperactive Verified 11/29/24 10:25 lorazepam (From Ativan) AdvReac Other Verified 11/29/24 10:25 propoxyphene (From AdvReac PT UNSURE Verified 11/29/24 10:25 Darvocet-N) OF REACTION propoxyphene HCl (From AdvReac Other Verified 11/29/24 10:25 Darvon) Family History Sister Heart disease CAD (coronary artery disease) Hypertension Mother Diabetes Brother Hypertension Surgical History History of cardiac catheterization Hx of colonoscopy History of cone biopsy of uterine cervix S/P cholecystectomy S/P parathyroidectomy S/P colonoscopy Social History Smoking Status: Former smoker alcohol intake: current substance use type: does not use Review of Systems (Anesthesia) ROS Narrative System reviewed and no additional complaints, except as documented.
--- NOTE | 2024-12-02 13:30 | EGD_PTH ---
PATIENT: CASSANDRA CANADA LOC: EN U#:[id number] AGE/SX: 64/F ROOM: RE12/02/[address]: Dr. Phillip Mcelroy DO : 1960 BED: DIS: 12/02/2024 SPEC #: [id number] RECD: 12/02/24 16:53 STATUS: ABHISHEK BECCA #: [id number] MAHESH: 12/02/24 13:[address]: Phillip Mcelroy DEPT: SURGICAL PATHOLOGY RECD BY: Дмитрий Khan ENTERED: 12/05/24 11:02 SP TYPE: EGD BIOPSY ELDA DR: Dr. Tamir Elliott DO Tissues: A - Gastric mucous membrane B - Duodenum, NOS C - Esophagus, NOS Procedures: Surgery Specimen Level IV HEADER OPERATION: EGD with biopsies PRE-OP DIAGNOSIS: Nausea / vomiting, epigastric pain TISSUE SUBMITTED: A- Gastric body biopsy, B- Duodenum biopsy, C- Random esophageal biopsy MICROSCOPIC DIAGNOSIS A. Gastric body, biopsy: - Oxyntic mucosa with features of reactive gastropathy. - Negative for Helicobacter-like organisms (H&E). B. Duodenum, biopsy: - Superficial duodenal mucosa with normal villous architecture. - Negative for increased intraepithelial lymphocytes. C. Esophagus, random, biopsy: - Benign squamous mucosa negative for eosinophils. MICROSCOPIC DESCRIPTION Slides are reviewed. GROSS DESCRIPTION A. Received in fixative is one container labeled with the patient's name and designated Gastric body biopsy. The specimen consists of two irregular fragments of light bui soft tissue, each measuring 0.8 cm. The specimen is totally submitted in one cassette. B. Received in fixative is one container labeled with the patient's name and designated Duodenum biopsy. The specimen consists of multiple irregular fragments of light bui soft tissue that in aggregate measure 0.9 x 0.6 x 0.1 cm. The specimen is totally submitted in one cassette. C. Received in fixative is one container labeled with the patient's name and designated Random esophageal biopsy. The specimen consists of three irregular fragments of light bui soft tissue that measure 0.1 to 0.6 cm. Smallest fragments may not survive processing. The specimen is totally submitted in one cassette. CT 12/05/2024 CPT:01631s9
--- NOTE | 2024-12-02 14:27 | OP.EGD_ITS ---
Patient Name: Kailyn Rajput Procedure Date: 12/02/2024 2:02 PM Date of : 1960 Age: 64 Procedure: Upper GI endoscopy Indications: Epigastric abdominal pain, Functional Dyspepsia Providers: Phillip Mcelroy DO Referring MD: Noam Flores Medicines: Monitored Anesthesia Care Patient Profile: This is a 64 year old female. Refer to note in patient chart for documentation of history and physical. Patient has symptoms of chronic abdominal cramping, chronic abdominal distention, chronic epigastric abdominal pain, chronic dyspepsia and chronic nausea. Complications: No immediate complications. Procedure: Pre-Anesthesia Assessment: - Prior to the procedure, a History and Physical was performed, and patient medications and allergies were reviewed. The patient is competent. The risks and benefits of the procedure and the sedation options and risks were discussed with the patient. All questions were answered and informed consent was obtained. Patient identification and proposed procedure were verified by the physician in the pre-procedure area. Mental Status Examination: alert and oriented. Airway Examination: normal oropharyngeal airway and neck mobility. Respiratory Examination: clear to auscultation. CV Examination: normal. Prophylactic Antibiotics: The patient does not require prophylactic antibiotics. Prior Anticoagulants: The patient has taken no anticoagulant or antiplatelet agents except for NSAID medication. ASA Grade Assessment: II - A patient with mild systemic disease. After reviewing the risks and benefits, the patient was deemed in satisfactory condition to undergo the procedure. The anesthesia plan was to use monitored anesthesia care (MAC). Immediately prior to administration of medications, the patient was re-assessed for adequacy to receive sedatives. The heart rate, respiratory rate, oxygen saturations, blood pressure, adequacy of pulmonary ventilation, and response to care were monitored throughout the procedure. The physical status of the patient was re-assessed after the procedure. After obtaining informed consent, the endoscope was passed under direct vision. Throughout the procedure, the patient's blood pressure, pulse, and oxygen saturations were monitored continuously. The gastroscope was introduced through the mouth, and advanced to the third part of the duodenum. Small bowel enteroscopy was deemed necessary. The upper GI endoscopy was accomplished without difficulty. The patient tolerated the procedure well. Scope In: 2:14:53 PM Scope Out: 2:19:23 PM Total Procedure Duration Time 0 hours 4 minutes 30 seconds Findings: Patchy, white plaques were found in the upper third of the esophagus and in the middle third of the esophagus. Biopsies were taken with a cold forceps for histology. Verification of patient identification for the specimen was done. Patchy mildly erythematous mucosa without bleeding was found in the gastric body. Biopsies were taken with a cold forceps for histology. Verification of patient identification for the specimen was done. Estimated blood loss was minimal. Biopsies were taken with a cold forceps for Helicobacter pylori testing. Verification of patient identification for the specimen was done. Estimated blood loss was minimal. Patchy mildly erythematous mucosa without active bleeding and with no stigmata of bleeding was found in the duodenal bulb and in the first portion of the duodenum. Biopsies were taken with a cold forceps for histology. Verification of patient identification for the specimen was done. Estimated blood loss was minimal. Impression: - Esophageal plaques were found, consistent with candidiasis. Biopsied. - Erythematous mucosa in the gastric body. Biopsied. - Erythematous duodenopathy. Biopsied. Recommendation: - Discharge patient to home. - Resume previous diet. - Continue present medications. - Await pathology results. Procedure Code(s): --- Professional --- 51366, Small intestinal endoscopy, enteroscopy beyond second portion of duodenum, not including ileum; with biopsy, single or multiple CPT copyright 2021 [employer]. All rights reserved. The codes documented in this report are preliminary and upon structural design engineer review may be revised to meet current compliance requirements. Phillip Mcelroy DO 12/02/2024 2:26:38 PM This report has been signed electronically. Number of Addenda: 0 Note Initiated On: 12/02/2024 2:02 PM
--- NOTE | 2024-12-02 14:27 | OP.PROVAT_ITS ---
12/02/2024 Noam Flores [address] [place] [address] Re : Upper GI endoscopy procedure for Kailyn Rajput Dear Dr. Flores This procedure was performed on Monday, December 02, 2024. My impressions and recommendations are as follows: Impressions : - Esophageal plaques were found, consistent with candidiasis. Biopsied. - Erythematous mucosa in the gastric body. Biopsied. - Erythematous duodenopathy. Biopsied. Recommendations : - Discharge patient to home. - Resume previous diet. - Continue present medications. - Await pathology results. My findings are described in the full procedure note, which is enclosed. If I can be of further assistance, please feel free to contact me at . Sincerely, Phillip Mcelroy, 12/02/2024 2:26:38 PM This report has been signed electronically.
--- NOTE | 2024-12-02 14:27 | PCM.POST.ANE ---
Anesthesia: Postop Eval I Current Vital Signs Temperature: 98.2 F Pulse Rate: 122 Blood Pressure: 134/88 Respiratory Rate: 22 Pulse Ox: 100 Assessment Airway patent: Yes Spontaneous unlabored respirations: Yes nausea: No Vomiting: No Anesthesia Complication: No Fluid Hydration Crystalloid volume administer (ml): 300 Total IV fluid infused: 300 Progress Note Anesthesia document: Postop Eval 1 completed: Yes
== END 2024-12-02 15:16 | disposition home or self-care (01) ==
LOC: EN 12:09 → AC 12:12
PROVIDERS: PCP Family Medicine; Referring Provider Family Medicine; Visit Provider Internal Medicine Gastroenterology
PROC: 0DJ08ZZ Inspection of Upper Intestinal Tract, Via Natural or Artificial Opening Endoscopic (ICD-10-PCS; CPT 43235; principal; 2024-12-02 13:25)
DX: K31.89 Other diseases of stomach and duodenum (principal); K59.00 Constipation, unspecified; K21.9 Gastro-esophageal reflux disease without esophagitis; R07.9 Chest pain, unspecified; R10.13 Epigastric pain; Z79.01 Long term (current) use of anticoagulants; Z79.899 Other long term (current) drug therapy; Z86.73 Personal history of transient ischemic attack (TIA), and cerebral infarction without residual deficits; Z86.718 Personal history of other venous thrombosis and embolism; Z87.891 Personal history of nicotine dependence; Z90.49 Acquired absence of other specified parts of digestive tract
CPT/HCPCS: 43239; 36416; 85610; 88305; J2405

== ENCOUNTER → 2025-02-24 | Outpatient (CLI) | payer MEDICAID, SELFPAY ==
--- NOTE | 2025-02-24 07:39 | NM_ITS ---
PROCEDURE: NM/Gastric Emptying Study
== END | disposition home or self-care (01) ==
LOC: NM 07:39
PROVIDERS: PCP Family Medicine; Referring Provider Student in an Organized Health Care Education/Training Program; Visit Provider Student in an Organized Health Care Education/Training Program
DX: R11.2 Nausea with vomiting, unspecified (principal)
CPT/HCPCS: 78264; A9541